=== PATIENT | female | born 1990 | race Two or more races ===

== ENCOUNTER → 2017-07-16 | Outpatient (REF) | payer OTHER ==
[2017-07-16 19:12] LABS: MEAN CORPUSCULAR HEMOGLOBIN 28.3 pg (27.0-33.0); MEAN CORPUSCULAR HGB CONC 31.8 g/dl (32.0-36.5); RED CELL DISTRIBUTION WIDTH 14.7 % (11.5-14.5); WHITE BLOOD COUNT 8.1 10^3/uL (4.0-10.0)
[2017-07-16 19:23] LABS: CALCIUM OXALATE CRYSTALS SMALL
[2017-07-16 19:43] LABS: BASOPHILS 1 % (0-4); EOSINOPHILS 2 % (0-5)
[2017-07-16 20:48] LABS: ALBUMIN 3.7 GM/DL (3.2-5.2); ALBUMIN/GLOBULIN RATIO 1.19 (1.00-1.93); ALKALINE PHOSPHATASE 73 U/L (45-117); ALT/SGPT 27 U/L (12-78); ANION GAP 7 MEQ/L (8-16); AST/SGOT 11 U/L (15-37); BILIRUBIN,TOTAL 0.3 MG/DL (0.2-1.0); BLOOD UREA NITROGEN 13 MG/DL (7-18); CALCIUM LEVEL 8.3 MG/DL (8.5-10.1); CARBON DIOXIDE LEVEL 26 MEQ/L (21-32); CHLORIDE LEVEL 108 MEQ/L (98-107); CHOLESTEROL LEVEL 135 MG/DL (<200); CREATININE FOR GFR 0.87 MG/DL (0.55-1.02); GLOMERULAR FILTRATION RATE > 60.0 (>60); GLUCOSE, FASTING 112 MG/DL (70-105); POTASSIUM SERUM 3.8 MEQ/L (3.5-5.1); SODIUM LEVEL 141 MEQ/L (136-145); TOTAL PROTEIN 6.8 GM/DL (6.4-8.2); TRIGLYCERIDES LEVEL 267 MG/DL (<150)
[2017-07-24 14:28] LABS: SUMMARY SEE SEPARATE REPORT
== END ==
LOC: M SFHCLERA 10:48
PROVIDERS: ATTEND Family Medicine
DX: E66.01 Morbid (severe) obesity due to excess calories (principal); Q61.3 Polycystic kidney, unspecified; F90.0 Attention-deficit hyperactivity disorder, predominantly inattentive type

== ENCOUNTER → 2017-07-17 | Outpatient (REF) | payer OTHER ==
[2017-07-17 12:55] LABS: FREE T4 0.65 NG/DL (0.76-1.46)
== END ==
LOC: M SFHCLERA 09:25
PROVIDERS: ATTEND Family Medicine
DX: Q61.3 Polycystic kidney, unspecified (principal); E66.01 Morbid (severe) obesity due to excess calories; F90.0 Attention-deficit hyperactivity disorder, predominantly inattentive type

== ENCOUNTER → 2017-08-13 | Outpatient (CLI) | payer OTHER ==
--- NOTE | 2017-08-13 10:08 | REP ---
Clinical: Pain with recent trauma . Technique: AP, lateral, bilateral oblique views left ankle . Findings: No acute fracture or dislocation. Skeletal structures and joint spaces are intact and normal. Ankle mortise appears stable. No subcutaneous emphysema or radiodense foreign body. Impression: Normal left ankle radiograph series. Signed by Robert Yu MD 08/13/2017 09:59 A
== END ==
LOC: M LRY 09:41
PROVIDERS: ATTEND Family Medicine
DX: M25.572 Pain in left ankle and joints of left foot (principal)
CPT/HCPCS: 73610; 80307; G0463

== ENCOUNTER → 2017-08-13 | Outpatient (REF) | payer OTHER | LOC: M SFHCLERA 09:26 | PROVIDERS: ATTEND Family Medicine | DX: F90.0 Attention-deficit hyperactivity disorder, predominantly inattentive type (principal) ==

== ENCOUNTER 2017-08-31 10:21 | Inpatient (IN) | payer OTHER ==
[~2017-08-31] VITALS: Ht 167.6 cm; Wt 118.0 kg
[2017-08-31] MEDS ORDERED: RITA10TA PO (10:37)
[2017-08-31] MEDS ORDERED: SYNT100T PO (10:37)
[2017-08-31 11:19] LABS: MEAN CORPUSCULAR HEMOGLOBIN 28.8 pg (27.0-33.0); MEAN CORPUSCULAR HGB CONC 33.4 g/dl (32.0-36.5); MEAN CORPUSCULAR VOLUME 86.1 fl (80.0-96.0); PLATELET COUNT, AUTOMATED 289 10^3/uL (150-450); WHITE BLOOD COUNT 6.9 10^3/uL (4.0-10.0)
[2017-08-31 11:38] LABS: CONTROL LINE HCG INT CTR LINE PRESENT
[2017-08-31 11:47] LABS: METHADONE URINE NEGATIVE (NEGATIVE)
[2017-08-31 11:55] LABS: ALBUMIN/GLOBULIN RATIO 1.18 (1.00-1.93); ALKALINE PHOSPHATASE 71 U/L (45-117); ALT/SGPT 29 U/L (12-78); ANION GAP 11 MEQ/L (8-16); AST/SGOT 14 U/L (7-37); BILIRUBIN,DIRECT 0.1 MG/DL (0.0-0.2); BILIRUBIN,TOTAL 0.5 MG/DL (0.2-1.0); BLOOD UREA NITROGEN 12 MG/DL (7-18); CARBON DIOXIDE LEVEL 26 MEQ/L (21-32); CHLORIDE LEVEL 105 MEQ/L (98-107); CREATININE FOR GFR 0.95 MG/DL (0.55-1.02); GLOMERULAR FILTRATION RATE > 60.0 (>60); GLUCOSE, FASTING 95 MG/DL (70-105); SODIUM LEVEL 142 MEQ/L (136-145); TOTAL PROTEIN 7.4 GM/DL (6.4-8.2)
[2017-08-31] MEDS ORDERED: METH20CA PO (13:07)
[2017-08-31] MEDS ORDERED: VITMTA PO (13:07)
[2017-08-31] MEDS ORDERED: CETI10TA PO (13:07)
[2017-08-31] MEDS ORDERED: FLON1SPR (13:07)
[2017-08-31] MEDS ORDERED: BENA25CA4 PO (13:07)
[2017-08-31] MEDS ORDERED: ACETAMINOPHEN TAB 650MG DOSE (2X325MG) PO ONE (13:15)
[2017-08-31 15:37] VITALS: BP 125/70
[2017-08-31] MEDS ORDERED: MOM 30ML SUSPENSION UDC PO PRN (17:30)
[2017-08-31] MEDS ORDERED: MAALOX 30 ML SUSP *UDC PO PRN (17:30)
[2017-08-31] MEDS ORDERED: FLUTICASONE PROP 0.05% NASAL SPRAY 16 GM (FLONASE) PRN (17:45)
[2017-08-31] MEDS: traZODone 50 MG TAB PO PRN (20:52)
[2017-08-31] MEDS: ACETAMINOPHEN TAB 650MG DOSE (2X325MG) PO PRN (20:52)
[2017-09-01] MEDS: LEVOTHYROXINE 100MCG TABLET (0.1MG) PO SCH (06:14)
[2017-09-01 06:48] VITALS: BP 130/76
[2017-09-01] MEDS: MULTIVITAMINS/MINERALS THERAP 1 TAB PO SCH (10:06)
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
[2017-09-01 18:00] VITALS: BP 128/72
[2017-09-01] MEDS: traZODone 50 MG TAB PO PRN (20:34)
[2017-09-01] MEDS: CETIRIZINE (ZyrTEC) 10 MG TAB PO PRN (20:35)
[2017-09-02] MEDS: LEVOTHYROXINE 100MCG TABLET (0.1MG) PO SCH (06:06)
[2017-09-02 06:32] VITALS: BP 95/57
[2017-09-02] MEDS: MULTIVITAMINS/MINERALS THERAP 1 TAB PO SCH (08:17)
[2017-09-02] MEDS ORDERED: ESCITALOPRAM OXALATE 5MG TABLET (LEXAPRO) PO ONE (11:45)
[2017-09-02 12:20] VITALS: BP 135/78
--- NOTE | 2017-09-02 17:03 | MHIPN ---
DATE: 09/02/2017 CHIEF COMPLAINT: Says feels better. SUBJECTIVE: Seen for followup, in the presence of staff. Says is feeling better, and moods are better, and she is somewhat less anxious. Says her visit with her went well, and they talked about marital counseling, individual counseling as well. Says she has spoken with her father, who informed her he has been on Lexapro, and has done well on it. MENTAL STATUS EXAMINATION: Neat, cooperative. No agitation. No psychomotor retardation. Coherent. Denies any thoughts of harming herself or anyone else. Currently no evidence of any psychosis. Judgment and insight improved. ASSESSMENT: 1. Other specified depressive disorder. 2. Rule out major depressive disorder. 3. The possibility of adjustment disorder with depressed mood and anxiety are also considered. PLAN: After discussion of various options, she is to be started on Lexapro at 5 mg daily, to help address moods, depression and anxiety, and will start off at a low dose, which can be titrated upwards as indicated. Meanwhile, she is to continued with participation in activities in the unit. She will be seeing the rest of the treatment team, and the psychiatrist, tomorrow.
[2017-09-02 18:00] VITALS: BP 130/74
[2017-09-02] MEDS: traZODone 50 MG TAB PO PRN (21:12)
[2017-09-02] MEDS: CETIRIZINE (ZyrTEC) 10 MG TAB PO PRN (21:12)
[2017-09-03] MEDS: LEVOTHYROXINE 100MCG TABLET (0.1MG) PO SCH (06:14)
[2017-09-03 07:00] VITALS: BP 124/65
[2017-09-03] MEDS: MULTIVITAMINS/MINERALS THERAP 1 TAB PO SCH (08:10)
--- NOTE | 2017-09-03 08:26 | HPE ---
DATE OF ADMISSION: 08/31/2017 Please refer to psychiatric history and evaluation for further details on this admission. This examination and history is intended for medical issues which may need treatment, followup or consult on this 27-year-old male. ALLERGIES: AMOXICILLIN. PRIMARY CARE PROVIDER: Dr. Wilson. SOCIAL HISTORY: She is . Her is a soldier. She has two children, one age 2 with autism and another age 4. ETOH rarely. Smokes none. Recreational drug use none. PAST MEDICAL HISTORY: As a youth she had been in Ritalin. She was restarted on it about 5 days ago for attention deficit disorder (ADD). Hypothyroidism. TSH is therapeutic. Polycystic kidney disease. Environmental allergies. PAST SURGICAL HISTORY: Negative. HOME MEDICATIONS: - cetirizine 10 mg by mouth daily as needed allergies - Benadryl 25 mg by mouth every 4 hours as needed for allergies - Flonase two sprays each nostril - levothyroxine 100 mcg by mouth daily - Ritalin 20 mg by mouth daily - MultiVite one by mouth daily LABORATORY STUDIES: CBC was normal. CMP was normal. Toxicology screen was negative. Ten systems review was done and was unremarkable. OBJECTIVE: Vital signs stable. He is alert and oriented times three. Pupils equal, round, and reactive to light. Extraocular movement intact. Cornea and sclera clear. Conjunctiva normal. No facial asymmetry. Pharynx, tongue and gums pink and moist. Tongue is midline. Neck is supple, without lymphadenopathy. No thyromegaly. No goiter. Carotids 2+ without bruit. Chest clear to auscultation, without wheeze or retraction. Heart is regular. Abdomen benign. Bowel sounds positive. Genitourinary ()/Rectal: Not done. Extremities show equal strength, full range of motion. No cyanosis, clubbing or edema. IMPRESSION/PLAN: Psychiatric plan per psychiatry. Continue medications for environmental allergies. Hypothyroidism, continue levothyroxine. No other acute medical issues.
[2017-09-03] MEDS: ESCITALOPRAM OXALATE 10 MG TAB (LEXAPRO) PO SCH (11:17)
[2017-09-03 18:00] VITALS: BP 136/63
--- NOTE | 2017-09-03 18:22 | MHIPN ---
DATE OF SERVICE: 09/03/2017 HISTORY: 27 years old, female, admitted for depression and suicidal ideation. The patient texted her , she was going to kill herself. MEDICATIONS: - Lexapro 5 mg by mouth every morning - trazodone 50 mg by mouth nightly SUBJECTIVE: "I'm feeling about the same." OBJECTIVE: The patient continues depressed with sad restricted facial expression and psychomotor retardation. We discussed her treatment of attention deficit hyperactivity disorder (ADHD) with Ritalin, and the patient says that she believed her depression was worse when she was on this medication. Also, she had more problem sleeping. She has no side effect from Lexapro. MENTAL STATUS EXAMINATION: The patient dressed in [facility]. The patient is cooperative during examination. Has fair eye contact. Mood is depressed and anxious. Affect is congruent with mood. No delusion. No hallucinations. Memory, attention, and concentration are fair. The patient is able to contract for safety during the interview. Insight and judgment is limited. ASSESSMENT: 1. Depression. 2. Suicidal ideation. 3. Attention deficit hyperactivity disorder. PLAN: 1. Increase Lexapro to 10 mg by mouth every morning. 2. Continue trazodone 50 mg by mouth nightly. 3. Continue medication management, individual and group therapy.
[2017-09-03] MEDS: CETIRIZINE (ZyrTEC) 10 MG TAB PO PRN (21:18)
[2017-09-03] MEDS: traZODone 50 MG TAB PO PRN (21:18)
[2017-09-04] MEDS: LEVOTHYROXINE 100MCG TABLET (0.1MG) PO SCH (05:46)
[2017-09-04 07:00] VITALS: BP 133/63
[2017-09-04] MEDS: ESCITALOPRAM OXALATE 10 MG TAB (LEXAPRO) PO SCH (09:26)
[2017-09-04] MEDS: MULTIVITAMINS/MINERALS THERAP 1 TAB PO SCH (09:26)
[2017-09-04] MEDS ORDERED: traZODone 25MG PER 1/2 TABLET PO PRN (12:15)
[2017-09-04] MEDS: ACETAMINOPHEN TAB 650MG DOSE (2X325MG) PO PRN (14:18)
--- NOTE | 2017-09-04 16:20 | MHIPN ---
DATE OF SERVICE: 09/04/2017 HISTORY: 27 years-old female admitted for depression and suicidal ideation. The patient text her she was going to kill herself. MEDICATIONS: - Lexapro 10 mg by mouth every morning - trazodone 50 mg by mouth nightly as needed for insomnia SUBJECTIVE: "I'm feeling a lot better." OBJECTIVE: Patient is significantly improved from admission. Her facial expression is no longer restricted. She does not have psychomotor retardation. She is tolerating well the medication, is motivated for treatment. There is no evidence of psychotic symptoms. No auditory or visual hallucinations or delusions. Patient is able to contract for safety. MENTAL STATUS EXAMINATION: Patient dressed in [facility]. Patient is cooperative, has fair eye contact. Mood is depressed but improved from admission. Affect is congruent with mood. No delusions. No hallucinations. Memory, attention and concentration are fair. Patient is denying suicidal or homicidal ideation. Insight and judgment is fair. ASSESSMENT: 1. Depression. 2. Suicidal ideation. 3. ADHD. PLAN: 1. Continue Lexapro 10 mg by mouth every morning. 2. Decrease trazodone to 25 mg by mouth nightly. 3. If patient continues improving, will discharge tomorrow after a meeting with her .
[2017-09-04 18:00] VITALS: BP 137/79
[2017-09-04] MEDS: CETIRIZINE (ZyrTEC) 10 MG TAB PO PRN (21:22)
[2017-09-05] MEDS: LEVOTHYROXINE 100MCG TABLET (0.1MG) PO SCH (05:55)
[2017-09-05 06:38] VITALS: BP 118/69
[2017-09-05] MEDS: MULTIVITAMINS/MINERALS THERAP 1 TAB PO SCH (09:02)
[2017-09-05] MEDS: ESCITALOPRAM OXALATE 10 MG TAB (LEXAPRO) PO SCH (09:02)
[2017-09-05] MEDS ORDERED: ESCI10TA2 PO (09:23)
--- NOTE | 2017-09-05 19:13 | MHDS ---
DATE OF ADMISSION: 09/01/2017 DATE OF DISCHARGE: 09/06/2017 LEGAL STATUS AT ADMISSION: 9.39 legal status. HISTORY OF PRESENT ILLNESS: The following information is according to the initial evaluation of Dr. Cho, his progress notes and my own progress note. On admission, Dr. Cho wrote: She is 27 years old. She is . She has two children. The younger son who is 2 years old has autistic disorder per the patient. The patient was brought in as she and her had an argument, apparently about housework. She says that she had asked him to fold the laundry, that tended to escalate and she felt overwhelmed and texted him that she was going to kill herself. She said she had no such plans. That led to her being brought to the hospital. The emergency room notes suggest that she had said that she would rather kill herself than get a divorce. She says that she and her have problems but nothing out of the ordinary, though also indicates that they are arranging for marital counseling and that the slot machine department floorperson has visited her as well. She has had difficulties with sleep but suggest that it has not been very long. Denies feeling depressed. Denies feeling suicidal. Though, she does say that she felt overwhelmed with various stressors, including looking after her family, her son and at the same time attending college as well. She says she is doing a course for a degree related to medical coding and billing. She say she had thought of completing her bachelors in education. She has two classes left but says that has not been feasible since moving here. She has been here for about a year. Prior to this, she had lived in [place] for a few years, all related to her 's work. Denies that she has ever been suicidal or that she has ever attempted to end her life. She says she was recently started on Ritalin by her primary care. She says she was diagnosed with attention deficit hyperactivity disorder (ADHD) in the past but she stopped Ritalin at age 14. She says that she noticed that she becomes quite depressed when the Ritalin stops, alludes to it losing its effect. She says she has taken an antidepressant in the past but she is not quite sure what it was. ER note suggests that she had taken Prozac. She says she tends to binge eat and that she has put on substantial weight, more than 70 pounds or so, in the course of this year and this is after her weight had gone up just prior to that as well. She says she used to exercise and run regularly until a couple of years ago, prior to her giving . She says she does not purge. She says recently she has been diagnosed with hypothyroidism which she feels may account for some of the weight gain. No history consistent with hypomania, karen, psychosis, or traumatic stress disorder. LABORATORY DATA AT ADMISSION: Her CBC was unremarkable. CMP within normal limits. TSH within normal limits. test is negative. Urine drug screen is negative. Blood alcohol level is negative. HOSPITAL COURSE: After the first evaluation, Dr. Cho started the patient on Lexapro 5 mg by mouth daily. She tolerated well the medication and it was increased to 10 mg a day. With this medication, the patient was stabilized. The patient had no complication during this hospital admission. The patient continued to deny suicidal thoughts. There was no evidence of major depressive disorder. During our session on 09/03/2017, the patient thinks that the fact that she was on Ritalin may have had something to do with her mood changes, irritability, and emotional roller coaster. She prefers not to be started on this medication. She was sleeping well with the help of a low dosage of trazodone. At the moment of discharge on 09/05/2017, the patient is in stable condition with no auditory or visual hallucinations, delusions, suicidal or homicidal ideation. The patient is motivated for treatment in outpatient setting, so a meeting was held with her before discharge. MENTAL STATUS EXAMINATION: The patient is dressed in [facility]. The patient is calm and cooperative. Speech is clear, coherent with normal rate and is spontaneous. The patient has good eye contact. Mood is euthymic. Affect is congruent with mood. The patient is oriented to time, place, person and situation, maintains attention and concentration correctly. Instant recall, recent and remote memory are intact. Thought processes are coherent, logical, and goal-directed. The patient does not have auditory or visual hallucinations. The patient does not have paranoid, persecutory, somatic, grandiose, or mu-ism delusions. The patient is denying suicidal or homicidal ideation. Insight and judgment are fair. DISCHARGE MEDICATIONS: Lexapro 10 mg by mouth every morning. DISCHARGE DIAGNOSES: AXIS I: Adjustment disorder with depressed and anxious mood. AXIS II: Deferred. AXIS III: Hypothyroidism. INSTRUCTIONS TO THE PATIENT: The patient is to continue taking her medications as prescribed and followup appointments. She is advised to maintain absolute sobriety from drugs and alcohol. The patient has scheduled appointment for medication management, individual psychotherapy, and primary care physician.
== END 2017-09-05 11:30 | disposition home or self-care (01) | DRG 882 ==
LOC: M ED 10:21 → EDBD 10:21 → M ED INP 12:46 → M PSY 15:11
PROVIDERS: ADMIT Psychiatry & Neurology Psychiatry; ATTEND Psychiatry & Neurology Psychiatry
DX: F43.23 Adjustment disorder with mixed anxiety and depressed mood (principal); Q61.3 Polycystic kidney, unspecified; E03.9 Hypothyroidism, unspecified; Z88.0 Allergy status to penicillin; F90.9 Attention-deficit hyperactivity disorder, unspecified type; Z79.899 Other long term (current) drug therapy

== ENCOUNTER → 2017-09-06 | Outpatient (REF) | payer OTHER ==
[~2017-09-06] MED LIST: BENA25CA4 PO; CETI10TA PO; ESCI10TA2 PO; FLON1SPR; METH20CA PO; RITA10TA PO; SYNT100T PO; VITMTA PO
== END ==
LOC: M SFHCLERA 12:13
PROVIDERS: ATTEND Family Medicine
DX: E03.9 Hypothyroidism, unspecified (principal)